=== PATIENT | female | born 1955 | race Two or more races ===

== ENCOUNTER 2017-10-12 09:06 | Day surgery (SDC) | payer BC ==
[2017-10-12] VITALS (11 sets, daily range): BP systolic 128–171; BP diastolic 56–82
[~2017-10-12] VITALS: Ht 167.6 cm; Wt 104.3 kg
[~2017-10-12 09:06] MED LIST: Proparacaine 0.5% Opth Soln 15ml LEFT EYE ONE
[2017-10-12] MEDS ORDERED: Cyclopentolate 1% Opth Sol 2ml ONE (09:28)
[2017-10-12] MEDS ORDERED: Phenylephrine 2.5% Op 2ml Soln ONE (09:28)
[2017-10-12] MEDS ORDERED: Tropicamide 1% Opth 15ml Soln ONE (09:28)
[2017-10-12] MEDS ORDERED: Proparacaine 0.5% Opth Soln 15ml ONE (09:29)
[2017-10-12] MEDS: Cyclopentolate 1% Opth Sol 2ml LEFT EYE SCH ×3 (09:36→10:17)
[2017-10-12] MEDS: Phenylephrine 2.5% Op 2ml Soln LEFT EYE SCH ×3 (09:36→10:17)
[2017-10-12] MEDS: Tropicamide 1% Opth 15ml Soln LEFT EYE SCH ×3 (09:36→10:17)
[2017-10-12] MEDS ORDERED: BSS 500ml btl ONE (09:36)
[2017-10-12] MEDS ORDERED: Kenalog-40 1ml Vial ONE (09:37)
[2017-10-12] MEDS ORDERED: Pred Forte 1% Opth Susp 1ml ONE (09:37)
[2017-10-12] MEDS ORDERED: Maxitrol Opth Oint 3.5gm ONE (09:37)
[2017-10-12] MEDS ORDERED: Dexamethasone 4mg/ml vial ONE (09:37)
[2017-10-12] MEDS ORDERED: Tetracaine 0.5% Opth 4ml Soln ONE (09:38)
[2017-10-12] MEDS ORDERED: Povidone-Iodine 5% opth solution ONE (09:38)
[2017-10-12] MEDS ORDERED: Goniosol 2.5% Opth Soln - 15ml ONE (09:39)
[2017-10-12] MEDS ORDERED: Lidocaine 2% MPF 5ml Vial INJ ONE (09:39)
[2017-10-12] MEDS ORDERED: Acetylcholine Injection (OR) ONE (09:39)
[2017-10-12] MEDS ORDERED: BSS 15ml BTL ONE (09:39)
[2017-10-12] MEDS ORDERED: Sodium Hyaluronate 10 mg/ml 0.85ml ONE (09:40)
[2017-10-12] MEDS ORDERED: Bupivacaine 0.75% 30ml vial INJ ONE (09:40)
[2017-10-12] MEDS ORDERED: DILANTIN100 MG ORAL (09:55)
[2017-10-12] MEDS ORDERED: SIMVASTATIN40 MG ORAL (09:55)
[2017-10-12] MEDS ORDERED: DIOVAN HCT 1601 EACH ORAL (09:55)
[2017-10-12] MEDS ORDERED: LR 1000ml ONE (11:00)
[2017-10-12] MEDS ORDERED: NS Irrig 1000ml ONE (11:00)
[2017-10-12] MEDS ORDERED: Propofol 200mg/20ml IV ONE (11:00)
[2017-10-12] MEDS ORDERED: Sterile Water Irrig 1000ml IRRIG ONE (11:00)
[2017-10-12] MEDS ORDERED: fentaNYL 100 mcg/2 mL IV ONE (11:00)
[2017-10-12] MEDS ORDERED: Midazolam 2mg/2ml Inj ONE (11:00)
--- NOTE | 2017-10-12 11:09 | Anethesia Preoperative Eval ---
Anesthesia Pre-op PMH/ROS General Date of Evaluation: Oct 12, 2017 Time of Evaluation: 11:04 Anesthesiologist: Maci ASA Score: ASA 3 Mallampati Score Class I : Soft palate, uvula, fauces, pillars visible Class II: Soft palate, uvula, fauces visible Class III: Soft palate, base of uvula visible Class IV: Only hard plate visible Mallampati Classification: Class III Surgeon: Glory Diagnosis: L eye retinal detouchment Surgical Procedure: L eye PPV Anesthesia History: none Family History: no anesthesia problems Allergies: Uncoded Allergies: iv contrast (Adverse Reaction, Mild, 10/12/17) cough Medications: see eMAR Past Medical History Cardiovascular: Reports: HTN, Denies: CAD, UT, valve dz, arrhythmia, other Pulmonary: Reports: ALLAN, Denies: asthma, COPD, other Gastrointestinal/Genitourinary: Reports: GERD, Denies: CRI, ESRD, other Neurologic/Psychiatric: Denies: dementia, CVA, depression/anxiety, TIA, other Endocrine: Reports: DM - borderline, Denies: hypothyroidism, steroids, other HEENT: Reports: cataract (L) - s/p Sx Hematology/Immune: Denies: anemia, DVT, bleeding disorder, other Musculoskeletal/Integumentary: Reports: DJD, Denies: OA, RA, DDD, edema, other Other: obesity PMH Narrative: as above PSxH Narrative: C sections x2, hysterectomy L eye cataract Anesthesia Pre-op Phys. Exam Physician Exam Last Vital Signs Date Time Temp Pulse Resp B/P (MAP) Pulse Ox O2 Delivery O2 Flow Rate FiO2 10/12/17 09:42 97.6 67 18 144/76 99 Room Air Constitutional: NAD Neurologic: CN 2-12 intact Cardiovascular: RRR, no M/R/G Respiratory: CTA Gastrointestinal: other - obesity Airway Exam Mallampati Score: Class III MO: limited Neck: short ROM: limited Teeth: missing Dentures: no upper, no lower Anesthesia Pre-op A/P Labs see chart Studies Pre-op Studies: EKG - NSR Risk Assessment & Plan Assessment: ASA 3 Plan: GA with LMA Status Change Before Surgery: No Pre-Antibiotics Drug: none LUIS MONTGOMERY M.D. Oct 12, 2017 11:09
--- NOTE | 2017-10-12 11:26 | Pre-Procedure Note/Attestation ---
Pre-Procedure Note/Attestation Complete Prior to Procedure Planned Procedure: left Procedure Narrative: Recurrent RRD OS Indications for Procedure Pre-Operative Diagnosis: Recurrent RRD Attestation I attest that I discussed the nature of the procedure; its benefits; risks and complications; and alternatives (and the risks and benefits of such alternatives ), prior to the procedure, with the patient (or the patient's legal rental representative). I attest that, if there was a reasonable possibility of needing a blood transfusion, the patient (or the patient's legal rental representative) was given the [facility] standardized written summary, pursuant to the [place] Blood Safety Act ([place] Health and Safety Code # 1645, as amended). I attest that I re-evaluated the patient just prior to the surgery and that there has been no change in the patient's H&P, except as documented below: Kevan Holder M.D. Oct 12, 2017 11:26
--- NOTE | 2017-10-12 11:27 | Brief Operative Note ---
Immediate Post Operative Note Operative Note Pre-op Diagnosis: Recurrent RRD Procedure: SB/PPV/MP/RTX/EL/AFE/SO OS Post-op Diagnosis: Same Post-op Diagnosis: same as pre-op Surgeon: Glory Anesthesia: general Specimen: none Complications: none Condition: stable Fluids: Min Estimated Blood Loss: minimal Drains: none Implant(s) used?: Yes - CODY/Ashley/SO Kevan oHlder M.D. Oct 12, 2017 11:27
--- NOTE | 2017-10-12 11:27 | Operative Note - PDOC ---
Operative Note Operative Note Pre-op Diagnosis: Recurrent RRD Procedure: SB/PPV/MP/RTX/EL/AFE/SO OS Post-op Diagnosis: Same Post-op Diagnosis: same as pre-op Surgeon: Glory Anesthesia: general Specimen: none Complications: none Condition: stable Fluids: Min Estimated Blood Loss: minimal Drains: none Implant(s) used?: Yes - SB/Sleeve/SO Indications for Procedure Pre-operative Diagnosis: Recurrent retinal detachment following pneumatic retinopexy with large temporal tear and inferior proliferative vitreo-retinopathy and macular scar, LEFT EYE Post-operative Diagnosis: Same Procedure: Scleral buckle (41 band, 72 sleeve), pars plans vitrectomy (23 gauge ), temporal limited retinectomy, infusion of PFO, endolaser, air-fluid exchange , infusion silicone oil (1K cS), LEFT EYE Surgeon: Kevan Holder M.D. Anesthesia: General anesthesia Complications: None Indications for the procedure: The patient has vision loss due to recurrent retinal detachment following pneumatic retinopexy performed elsewhere. She presents for surgery after review of the risks, benefits, alternative and signing informed consent into the medical chart. Description of Procedure Procedure performed: The patient was met in the pre-op area where informed consent was reviewed. The operative eye was verified, marked and dilated. The patient was transferred to the operative suite, where cardiopulmonary monitoring was established and general anesthesia was administered without complications. The eye was prepped and draped in sterile ophthalmic fashion. A lid speculum was placed. Under direct visualization, the conjunctiva was opened and the quadrants were dissected. The rectus muscles were isolated and hooked with silk sutures. The quadrants were inspected and no scleral defects were noted. The 41 band was encircled around the globe with its ends attached in the superonasal quadrant with the 72 sleeve. The buckle was sutured to the sclera with 5-0 nylon sutures at 4mm posterior to the muscle insertions in all 4 quadrants. The buckle was pulled flush against the globe, then 10mm beyond flush. The anterior chamber was tapped to reduce the intraocular pressure. The buckle ends were trimmed. Under microscope visualization, the 23 gauge infusion line was placed 4 millimeters inferotemporally. After visualization of the tip in the vitreous cavity, the infusion line was turned on. The superotemporal and superonasal cannulas were placed. Under BIOM visualization, residual gas was removed, peripheral and core vitrectomy was performed. As the vitreous was removed and retinal traction was released, the retina started to relax, however, there was a temporal star-fold and foreshortening of the retina; inferior pigment and PVR was also noted. Meticulous vitrectomy was performed up to the edges of the large retinal tear temporally and the inferior and nasal vitreous was trimmed to release traction on the retina. As the vitreous was trimmed from the tear, the retina remained taught due to foreshortening temporally. The temporal peripheral retina was demarcated with endocautery and a limited retinectomy was performed. PFO was infused into the eye and the retina reattached. Endolaser was used to barrier the large tear, retinectomy edge and the rest of the retinal periphery up to the buckle shelf. Next, air-fluid exchange was performed and the large tear temporally was dehydrated to prevent slippage. The retina was completely reattached under air. Silicone oil was infused into the eye. The cannulas and infusion line were removed and sutured with 7-0 vicryl sutures. The eye maintained normal intraocular pressure. The stay sutures were removed, the conjunctiva was repositioned and closed with 5-0 plain gut sutures. Subconjunctival vancomycin and dexamethasone were administered. The lid speculum was removed. The eye was cleaned of prep and drape. Atropine drop and Maxitrol ointment was applied. A pressure patch was placed. The patient was turned over to the anesthesia team, extubated and transferred in stable condition to the PACU. Kevan Holder M.D. Oct 12, 2017 11:27
[2017-10-12] MEDS ORDERED: Indocyanine Green 25mg Inj INJ ONE (11:45)
[2017-10-12] MEDS ORDERED: LR 1000ml 1,000 ML IVLG SCH (11:50)
[2017-10-12] MEDS ORDERED: Hydromorphone 0.5mg/0.5ml inj IVP PRN (12:00)
[2017-10-12] MEDS ORDERED: DiphenhydrAMINE 50mg/ml Inj IVP PRN (12:00)
--- NOTE | 2017-10-12 14:25 | Immediate Post-Op Evaluation ---
Immediate Post-Op Evalulation Immediate Post-Op Evalulation Procedure: L eye PPV scleral buckle Date of Evaluation: Oct 12, 2017 Time of Evaluation: 13:38 IV Fluids: 500 Blood Products: [id number] Estimated Blood Loss: min Urinary Output: none Blood Pressure Systolic: 134 Blood Pressure Diastolic: 75 Pulse Rate: 76 Respiratory Rate: 20 O2 Sat by Pulse Oximetry: 98 Temperature (Fahrenheit): 97.7 Pain Score (1-10): 2 Nausea: No Vomiting: No Complications none Patient Status: awake, patent, none Hydration Status: adequate LUIS MONTGOMERY M.D. Oct 12, 2017 14:25
[2017-10-12] MEDS ORDERED: Ketorolac 30mg Inj IV ONE (14:45)
--- NOTE | 2017-10-12 16:42 | 48 Hour Post Anesthesia Eval ---
Post Anesthesia Evaluation Procedure: L eye PPV scleral buckle Date of Evaluation: Oct 12, 2017 Time of Evaluation: 16:41 Blood Pressure Systolic: 138 0: 56 Pulse Rate: 74 Respiratory Rate: 20 Temperature (Fahrenheit): 97.6 O2 Sat by Pulse Oximetry: 98 Airway: patent Nausea: No Vomiting: No Pain Intensity: 2 Hydration Status: adequate Cardiopulmonary Status: stable Mental Status/LOC: patient returned to baseline Follow-up Care/Observations: n/a Post-Anesthesia Complications: none Follow-up care needed: ready to discharge LUIS MONTGOMERY M.D. Oct 12, 2017 16:42
== END 2017-10-12 15:30 | disposition home or self-care (01) ==
LOC: SUR 09:06
DX: H33.22 Serous retinal detachment, left eye (principal); Z90.710 Acquired absence of both cervix and uterus; I10 Essential (primary) hypertension; G47.33 Obstructive sleep apnea (adult) (pediatric); K21.9 Gastro-esophageal reflux disease without esophagitis; E11.9 Type 2 diabetes mellitus without complications; Z83.3 Family history of diabetes mellitus; Z87.820 Personal history of traumatic brain injury; Z80.9 Family history of malignant neoplasm, unspecified; Z82.49 Family history of ischemic heart disease and other diseases of the circulatory system
CPT/HCPCS: 67108; J1100; J1170; J1885; J2250; J2405; J2704; J3010; J3301; J3370; J3490; J7120; 94003; 94150